=== PATIENT | female | born 1965 | race American Indian/Alaskan Native ===

== ENCOUNTER 2017-07-26 09:59 | Inpatient (IN) | payer MEDICARE ==
[~2017-07-26 09:59] MED LIST: LACTATED RINGERS 1,000 ML IV SCH; VERSED IV NR
[2017-07-26] MEDS ORDERED: NACL 0.9% 1000 ML 1,000 ML ONE (12:07)
[2017-07-26 12:22] LABS: Basophils # (Auto) 0.1 K/mm3 (0.0-0.1); Basophils % (Auto) 1.1 % (0.0-1.8); Eosinophils # (Auto) 0.6 K/mm3 (0.0-0.4); Hematocrit 31.4 % (30.3-42.9); Hemoglobin 10.1 gm/dl (10.1-14.3); Lymphocytes # (Auto) 1.4 K/mm3 (1.2-5.4); Lymphocytes % (Auto) 17.3 % (13.4-35.0); Mean Corpuscular HGB Conc 32 % (30-34); Mean Corpuscular Hemoglobin 28 pg (28-32); Mean Corpuscular Volume 86 fl (79-97); Monocytes # (Auto) 0.7 K/mm3 (0.0-0.8); Monocytes % (Auto) 8.3 % (0.0-7.3); Platelet Count 270 K/mm3 (140-440); Red Blood Count 3.67 M/mm3 (3.65-5.03)
--- NOTE | 2017-07-26 12:28 | Anesthesia Consultation ---
Anesthesia Consult and Med Hx Date of service: 07/26/17 - Airway Anesthetic Teeth Evaluation: Good ROM Head & Neck: Adequate Mental/Hyoid Distance: Adequate Mallampati Class: Class II Intubation Access Assessment: Good - Pulmonary Exam CTA: Yes - Cardiac Exam Cardiac Exam: RRR - Pre-Operative Health Status ASA Pre-Surgery Classification: ASA3 Proposed Anesthetic Plan: General - Cardiovascular System Hx Hypertension: Yes - Endocrine Hx Renal Disease: Yes Hx End Stage Renal Disease: Yes Hx Non-Insulin Dependent Diabetes: Yes - Other Systems Hx Obesity: Yes
--- NOTE | 2017-07-26 12:28 | Anesthesia Day of Surgery ---
Anesthesia Day of Surgery - Day of Surgery Patient Examined: Yes Patient H&P Reviewed: Yes Patient is NPO: Yes
[2017-07-26 12:33] LABS: INR 1.02 (0.87-1.13)
[2017-07-26 12:34] LABS: Partial Thromboplastin Time 20.2 Sec. (24.2-36.6)
[2017-07-26] MEDS ORDERED: HumuLIN R IV ONE (12:35)
[2017-07-26 12:42] LABS: Calcium 8.5 mg/dL (8.4-10.2)
[2017-07-26] MEDS ORDERED: PEPCID PO NR (13:00)
[2017-07-26] MEDS ORDERED: ANCEF/STERILE WATER 2 GM/20 ML IV NR (13:21)
[2017-07-26] MEDS ORDERED: DIPRIVAN 10 MG/ML IV ONE ×2 (14:48→14:55)
[2017-07-26] MEDS ORDERED: XYLOCAINE MPF 2% ONE ×2 (14:49→14:55)
[2017-07-26] MEDS ORDERED: DILAUDID ONE ×2 (14:51→18:20)
[2017-07-26] MEDS ORDERED: HEPARIN ONE (15:23)
[2017-07-26] MEDS ORDERED: NACL 0.9% IR ONE (16:05)
[2017-07-26] MEDS ORDERED: QUELICIN ONE (16:09)
[2017-07-26] MEDS ORDERED: ZEMURON IV ONE (16:09)
[2017-07-26] MEDS ORDERED: DECADRON ONE (16:15)
[2017-07-26] MEDS ORDERED: NEO SYNEPHRINE/NS Syringe(OR USE) IV ONE (16:30)
[2017-07-26] MEDS ORDERED: NEO SYNEPHRINE ONE (16:30)
[2017-07-26] MEDS ORDERED: ROBINUL ONE ×2 (16:45)
[2017-07-26] MEDS ORDERED: ZOFRAN ONE ×2 (16:45→18:43)
[2017-07-26] MEDS ORDERED: NEOSTIGMINE ONE (16:45)
[2017-07-26] MEDS ORDERED: APRESOLINE ONE (16:49)
[2017-07-26] MEDS ORDERED: NORMODYNE IV ONE (16:53)
[2017-07-26] MEDS ORDERED: ePHEDrine SULFATE ONE (17:07)
[2017-07-26] MEDS ORDERED: ZOFRAN IV PRN (18:27)
[2017-07-26] MEDS ORDERED: DILAUDID IV PRN ×2 (18:27→23:06)
[2017-07-26] MEDS ORDERED: VANCOMYCIN/NS 1 GM/250 ML 1 GM/250 ML BAG IV SCH (19:00)
[2017-07-26] MEDS ORDERED: VANCOMYCIN PHARMACY TO DOSE IV SCH ×2 (19:00)
[2017-07-26 19:12] LABS: Hematocrit 30.8 % (30.3-42.9); Hemoglobin 9.8 gm/dl (10.1-14.3)
--- NOTE | 2017-07-26 19:42 | History and Physical Report ---
History of Present Illness Date of admission: 07/26/17 17:51 Chief complaint: Missed dialysis History of present illness: 51 YO Female with MO, DM, HTN, ESRD on HD (M,W,F), Last dialyzed on Wednesday presents to [facility] for elective surgical procedure and was admitted postoperatively for dialysis. Pt seen and evaluated upon arrival to the floor. Pt daughter at bedside during exam and interview. Pt resting comfortably. No reports of fever, chills, CP, Palpitations, NVD, Weakness, Productive cough or recent ill contacts. No reported nursing events. Discussed care plan with Nursing staff, and Nephrology consulted for dilaysis. Nursing staff informed to notify nephrology team for dialysis orders. Past History Past Medical History: diabetes, ESRD, hypertension Past Surgical History: Other (AV Fistula) Social history: denies: single Family history: hypertension Medications and Allergies Allergies Allergy/AdvReac Type Severity Reaction Status Date / Time codeine AdvReac Intermediate Vomiting Verified 07/26/17 11:16 morphine AdvReac Intermediate Vomiting Verified 07/26/17 11:17 Sulfa (Sulfonamide AdvReac Intermediate Vomiting Verified 07/26/17 11:10 Antibiotics) tramadol AdvReac Intermediate Vomiting Verified 07/26/17 11:19 Home Medications Medication Instructions Recorded Confirmed Last Taken Type Amitriptyline [Elavil] 25 mg PO DAILY 07/26/17 07/26/17 07/24/17 History Calcium Acetate [Phoslo] 667 mg PO 07/26/17 07/25/17 History Cetirizine HCl [Zyrtec] 10 mg PO DAILY 07/26/17 07/26/17 07/24/17 History Cinacalcet [Sensipar] 30 mg PO DAILY 07/26/17 07/26/17 07/24/17 History Enoxaparin [Lovenox] 30 mg SQ QDAY 07/26/17 07/26/17 07/24/17 History Gabapentin [Neurontin] 400 mg PO 07/26/17 07/24/17 History Insulin Aspart [NovoLOG 100 100 units PRN 07/26/17 07/26/17 07/25/17 History UNITS/ML VIAL] Insulin Glargine,Hum.rec.anlog 20 units DAILY 07/26/17 07/26/17 07/24/17 History [Lantus Solostar] Pantoprazole [Protonix] 40 mg PO QDAY 07/26/17 07/26/17 07/25/17 History Polyethylene Glycol 3350 [Miralax 17 gm PO QDAY 07/26/17 07/26/17 07/22/17 History 3350] Rosuvastatin Calcium 07/26/17 Unknown History Rosuvastatin Calcium [Crestor] 20 mg PO DAILY 07/26/17 07/26/17 07/17/17 History Warfarin [Coumadin] 2.5 mg PO DAILY 07/26/17 07/26/17 07/21/17 History Active Meds: Active Medications Amitriptyline HCl (Elavil) 25 mg PO DAILY [facility] Atorvastatin Calcium (Lipitor) 40 mg PO QHS [facility] Cefazolin Sodium (Ancef/Sterile Water 2 Gm/20 Ml) 2 gm IV PREOP NR Stop: 07/26/17 23:59 Cinacalcet (Sensipar) 30 mg PO DAILY [facility] Enoxaparin Sodium (Lovenox) 30 mg SUB-Q QDAY [facility] Famotidine (Pepcid) 20 mg PO PREOP NR Stop: 07/26/17 23:59 Last Admin: 07/26/17 12:46 Dose: 20 mg Gabapentin (Neurontin) 400 mg PO DAILY [facility] Hydromorphone HCl (Dilaudid) 0.25 mg IV Q10MIN PRN PRN Reason: Pain, Moderate (4-6) Stop: 07/27/17 18:26 Last Admin: 07/26/17 18:20 Dose: 0.25 mg Lactated Ringer's (Lactated Ringers) 1,000 mls @ 100 mls/hr IV DIRECT [facility] Vancomycin HCl 2,000 mg/ (Sodium Chloride) 520 mls @ 250 mls/hr IV ONCE ONE Stop: 07/26/17 22:04 Midazolam HCl (Versed) 2 mg IV PREOP NR Stop: 07/26/17 23:59 Last Admin: 07/26/17 13:17 Dose: 2 mg Pantoprazole Sodium (Protonix) 40 mg PO QDAY [facility] Polyethylene Glycol (Miralax 3350) 17 gm PO QDAY [facility] Vancomycin HCl (Vancomycin Pharmacy To Dose) 1 each IV PKCONSULT [facility]; Protocol Warfarin Sodium (Coumadin) 7.5 mg PO DAILY@1700 [facility] Review of Systems Constitutional: no weight loss, no weight gain, no chills Ears, nose, mouth and throat: no ear discharge, no tinnitis, no decreased hearing (/), no nasal congestion, no nasal discharge Breasts: no change in shape, no swelling, no mass (//) Cardiovascular: no chest pain, no orthopnea, no palpitations, no rapid/ irregular heart beat, no syncope, no lightheadedness Respiratory: no cough, no cough with sputum, no excessive sputum, no hemoptysis , no shortness of breath Gastrointestinal: no abdominal pain, no nausea, no vomiting, no diarrhea, no constipation Genitourinary Female: no pelvic pain, no flank pain, no dysuria, no urinary frequency, no incomplete emptying Rectal: no pain, no incontinence, no bleeding Musculoskeletal: no neck stiffness, no neck pain, no shooting arm pain, no arm numbness/tingling, no low back pain Integumentary: no rash, no pruritis, no redness, no sores, no wounds, no blisters Neurological: no head injury, no transient paralysis, no paralysis, no weakness , no parathesias, no numbness Psychiatric: no anxiety, no memory loss, no change in sleep habits, no sleep disturbances, no insomnia, no hypersomnia, no change in appetite Endocrine: no cold intolerance, no heat intolerance, no polyphagia, no excessive thirst, no polydipsia, no polyuria, no nocturia Hematologic/Lymphatic: no easy bruising, no easy bleeding Allergic/Immunologic: no urticaria, no allergic rhinitis, no wheezing (//) Exam - Constitutional Vitals: Temp Pulse Resp BP Pulse Ox 97.5 F L 78 14 115/63 100 07/26/17 18:50 07/26/17 19:05 07/26/17 19:05 07/26/17 19:05 07/26/17 19:05 General appearance: Present: no acute distress, obese - EENT Eyes: Present: PERRL ENT: hearing intact, clear oral mucosa - Neck Neck: Present: supple, normal ROM - Respiratory Respiratory effort: normal Respiratory: bilateral: CTA - Cardiovascular Heart Sounds: Present: S1 & S2. Absent: rub, click - Extremities Extremities: pulses symmetrical, No edema Peripheral Pulses: within normal limits - Abdominal General gastrointestinal: Present: soft, non-tender, non-distended, normal bowel sounds Female genitourinary: Present: normal - Integumentary Integumentary: Present: clear, warm, dry - Musculoskeletal Musculoskeletal: gait normal, strength equal bilaterally - Psychiatric Psychiatric: appropriate mood/affect, intact judgment & insight - Neurologic Neurologic: CNII-XII intact, moves all extremities Results - Labs CBC & Chem 7: 07/26/17 19:03 07/26/17 11:40 Labs: Abnormal lab results 07/26/17 07/26/17 07/26/17 Range/Units 11:40 11:40 11:40 Hgb (10.1-14.3) gm/dl RDW 18.0 H (13.2-15.2) % [place] % (Auto) 8.3 H (0.0-7.3) % Eos % (Auto) 7.0 H (0.0-4.3) % Eos # 0.6 H (0.0-0.4) K/mm3 APTT 20.2 L (24.2-36.6) Sec. Sodium 135 L (137-145) mmol/L Chloride 92.3 L (98-107) mmol/L BUN 29 H (7-17) mg/dL Creatinine 8.4 H (0.7-1.2) mg/dL Glucose 224 H (65-100) mg/dL POC Glucose (70-105) 07/26/17 07/26/17 07/26/17 Range/Units 12:00 14:23 18:08 Hgb (10.1-14.3) gm/dl RDW (13.2-15.2) % [place] % (Auto) (0.0-7.3) % Eos % (Auto) (0.0-4.3) % Eos # (0.0-0.4) K/mm3 APTT (24.2-36.6) Sec. Sodium (137-145) mmol/L Chloride (98-107) mmol/L BUN (7-17) mg/dL Creatinine (0.7-1.2) mg/dL Glucose (65-100) mg/dL POC Glucose 228 H 173 H 254 H (70-105) 07/26/17 07/26/17 Range/Units 19:03 19:44 Hgb 9.8 L (10.1-14.3) gm/dl RDW (13.2-15.2) % [place] % (Auto) (0.0-7.3) % Eos % (Auto) (0.0-4.3) % Eos # (0.0-0.4) K/mm3 APTT (24.2-36.6) Sec. Sodium (137-145) mmol/L Chloride (98-107) mmol/L BUN (7-17) mg/dL Creatinine (0.7-1.2) mg/dL Glucose (65-100) mg/dL POC Glucose 322 H (70-105) Assessment and Plan - Patient Problems (1) ESRD (end stage renal disease) Current Visit: Yes Status: Acute Plan to address problem: Nephrology consulted upon arrival, Pending dialysis orders, CBC, CMP, EKG, strict I/O, monitor uop q shift, supplemental oxygen (2) HTN (hypertension) Current Visit: Yes Status: Acute Qualifiers: Hypertension type: essential hypertension Qualified Code(s): I10 - Essential (primary) hypertension Plan to address problem: Monitor bp q shift, resume prehospital antihypertensive therapy (3) Obesity hypoventilation syndrome Current Visit: Yes Status: Acute Plan to address problem: supplemental oxygen, nebulizer therapy, early ambulation, diuresis, dialysis, NIPPV as clinically indicated (4) Diabetes Current Visit: Yes Status: Acute Plan to address problem: Consistent carbohydrate diet as tolerated, insulin, accu check (5) DVT prophylaxis Current Visit: Yes Status: Acute Plan to address problem: SCD to ble while in bed
[2017-07-26] MEDS ORDERED: HumuLIN R SUB-Q ONE (19:43)
[2017-07-26] MEDS ORDERED: HumuLIN R ONE (19:47)
--- NOTE | 2017-07-26 19:51 | Operative Report ---
PREOPERATIVE DIAGNOSIS: Macromastia. POSTOPERATIVE DIAGNOSIS: Macromastia. PROCEDURE: Bilateral reduction mammoplasty with nipple areolar complex amputation. SURGEON: Genaro Petersen MD AUTOMOTIVE SALES SPECIALIST: Darin Rosales CSA FINDINGS: 1680 g removed from the right breast, 1640 g removed from the left breast. DESCRIPTION OF PROCEDURE: The patient was brought to the operating room and placed on the table in supine position. Following administration of general anesthesia, bilateral breasts were prepped with Betadine solution and draped in usual sterile manner. A #10 blade scalpel was used to make a circumareolar skin incision followed by de-epithelization of inferior dermal pedicle. Modified Lynne pattern skin markings were incised with scalpel, deepened through subcutaneous fat and breast tissue using the electrocautery. Skin flaps were raised in standard manner as was fashioning of an inferior central mound pedicle. Breast tissue was resected inclusive of nipple areolar complexes bilaterally using electrocautery. Hemostasis controlled using electrocautery and then closure performed over 10 mm BEATRIZ drains using interrupted and running subcuticular 2-0 Monocryl sutures. Mastisol, Steri-Strips, and sterile dressings applied. The patient tolerated procedure well and returned to recovery room in stable condition. JOB# [id number] FTW/NTS
[2017-07-26] MEDS ORDERED: VANCOMYCIN 2,000 MG in NACL 0.9% 500 ML 500 ML IV ONE (20:00)
[2017-07-26] MEDS ORDERED: COUMADIN PO SCH (20:00)
--- NOTE | 2017-07-26 20:36 | Post Anesthesia Evaluation ---
- Post Anesthesia Evaluation Patient Participated: Yes Airway Patent: Yes Stable Respiratory Function: Yes Nausea/Vomiting: No Temp > 96.8F: Yes Pain Manageable: Yes Adequeate Hydration: Yes Anesthesia Complications: No Block Receding Appropriately: No Patient on Ventilator: No
[2017-07-26] MEDS ORDERED: TYLENOL PO PRN (22:56)
[2017-07-27] MEDS ORDERED: D50W (25GM) Syringe IV PRN (05:45)
[2017-07-27] MEDS: HumaLOG SUB-Q SCH ×4 (06:32→23:23)
[2017-07-27] MEDS ORDERED: LANTUS SUB-Q SCH ×2 (08:00→22:00)
[2017-07-27 08:19] LABS: Hematocrit 28.4 % (30.3-42.9); Hemoglobin 8.9 gm/dl (10.1-14.3); Mean Corpuscular HGB Conc 31 % (30-34); Mean Corpuscular Hemoglobin 27 pg (28-32); Mean Corpuscular Volume 86 fl (79-97); Platelet Count 277 K/mm3 (140-440); Red Cell Distribution Width 17.5 % (13.2-15.2)
[2017-07-27] MEDS ORDERED: NACL 0.9% 100 ML IV PRN (08:22)
--- NOTE | 2017-07-27 08:22 | Consultation ---
History of Present Illness - Reason for Consult Consult date: 07/27/17 end stage renal disease - History of Present Illness The patient is a 51 YO AAF with medical history significant for Morbid Obesity, Type 2 DM, Hypotension and ESRD on HD (M,W,F), who underwent elective bilateral breast reduction and was admitted postoperatively for dialysis. Patient has been on hemodialysis for the past 8 yrs, never had a working AVF / AVG, followed by at [place], [place]. Patient was last dialyzed on wednesday the 23 of July. She had vomiting last night. Denies fever, chills, CP, abd pain, weakness, cough, leg swelling or SOB. No reported nursing events. Plan to do hemodialysis today. Past History Past Medical History: diabetes, ESRD Past Surgical History: Other (AV Fistula) Social history: denies: single Family history: hypertension Medications and Allergies Allergies Allergy/AdvReac Type Severity Reaction Status Date / Time codeine AdvReac Intermediate Vomiting Verified 07/26/17 11:16 morphine AdvReac Intermediate Vomiting Verified 07/26/17 11:17 Sulfa (Sulfonamide AdvReac Intermediate Vomiting Verified 07/26/17 11:10 Antibiotics) tramadol AdvReac Intermediate Vomiting Verified 07/26/17 11:19 Home Medications Medication Instructions Recorded Confirmed Last Taken Type Amitriptyline [Elavil] 25 mg PO DAILY 07/26/17 07/26/17 07/24/17 History Calcium Acetate [Phoslo] 667 mg PO 07/26/17 07/25/17 History Cetirizine HCl [Zyrtec] 10 mg PO DAILY 07/26/17 07/26/17 07/24/17 History Cinacalcet [Sensipar] 30 mg PO DAILY 07/26/17 07/26/17 07/24/17 History Enoxaparin [Lovenox] 30 mg SQ QDAY 07/26/17 07/26/17 07/24/17 History Gabapentin [Neurontin] 400 mg PO 07/26/17 07/24/17 History Insulin Aspart [NovoLOG 100 100 units PRN 07/26/17 07/26/17 07/25/17 History UNITS/ML VIAL] Insulin Glargine,Hum.rec.anlog 20 units DAILY 07/26/17 07/26/17 07/24/17 History [Lantus Solostar] Pantoprazole [Protonix] 40 mg PO QDAY 07/26/17 07/26/17 07/25/17 History Polyethylene Glycol 3350 [Miralax 17 gm PO QDAY 07/26/17 07/26/17 07/22/17 History 3350] Rosuvastatin Calcium 07/26/17 Unknown History Rosuvastatin Calcium [Crestor] 20 mg PO DAILY 07/26/17 07/26/17 07/17/17 History Warfarin [Coumadin] 2.5 mg PO DAILY 07/26/17 07/26/17 07/21/17 History Active Meds: Active Medications Acetaminophen (Tylenol) 650 mg PO Q4H PRN PRN Reason: Non Cardiac Pain or Temp>100.5 Amitriptyline HCl (Elavil) 25 mg PO DAILY [facility] Atorvastatin Calcium (Lipitor) 40 mg PO QHS [facility] Last Admin: 07/26/17 22:35 Dose: 40 mg Cinacalcet (Sensipar) 30 mg PO DAILY [facility] Dextrose (D50w (25gm) Syringe) 50 ml IV PRN PRN PRN Reason: Hypoglycemia Enoxaparin Sodium (Lovenox) 30 mg SUB-Q QDAY [facility] Gabapentin (Neurontin) 400 mg PO DAILY [facility] Hydromorphone HCl (Dilaudid) 0.25 mg IV Q4H PRN PRN Reason: Pain , Severe (7-10) Last Admin: 07/27/17 06:00 Dose: 0.25 mg Insulin Glargine (Lantus) 20 units SUB-Q QHS [facility] Insulin Human Lispro (Humalog) 0 unit SUB-Q ACHS [facility]; Protocol Last Admin: 07/27/17 06:32 Dose: 10 unit Pantoprazole Sodium (Protonix) 40 mg PO QDAY [facility] Polyethylene Glycol (Miralax 3350) 17 gm PO QDAY [facility] Vancomycin HCl (Vancomycin Pharmacy To Dose) 1 each IV PKCONSULT [facility]; Protocol Warfarin Sodium (Coumadin) 2.5 mg PO DAILY@1700 [facility] Review of Systems Constitutional: no weight loss, no weight gain, no fever, no chills, no anorexia , no weakness Ears, nose, mouth and throat: no epistaxis Breasts: deferred Cardiovascular: no chest pain, no orthopnea, no edema, no syncope, no lightheadedness, no shortness of breath, no high blood pressure, no leg edema Respiratory: no cough, no hemoptysis, no shortness of breath Gastrointestinal: nausea, vomiting, no abdominal pain, no diarrhea, no melena, no jaundice Genitourinary Female: no dysuria, no hematuria Rectal: no bleeding Musculoskeletal: no redness of joints Integumentary: no rash, no jaundice Neurological: no head injury, no paralysis, no syncope, no convulsions, no change in speech, no change in mentation Exam - Vital Signs Vital signs: Vital Signs Temp Pulse Resp BP Pulse Ox 97.5 F L 88 18 102/63 99 07/26/17 10:55 07/26/17 10:55 07/26/17 10:55 07/26/17 10:55 07/26/17 10:55 - General Appearance General appearance: well-developed, well-nourished, appears stated age, obese, other (no distress, right IJ tunnel catheter) EENT: ATNC, PERRL, hearing intact, vision intact Neck: Present: neck supple, trachea midline Respiratory: Clear to Ascultation Heart: regular, S1S2, no murmurs Gastrointestinal: Present: normoactive bowel sounds, obese. Absent: tenderness Integumentary: no rash Neurologic: no focal deficit, no asterixis, alert and oriented x3 Musculoskeletal: Present: other (no edema) Psychiatric: mood/affect appropriate, cooperative Results - Lab Results 07/27/17 07:50 07/27/17 07:50 Most recent lab results Calcium 8.5 mg/dL (8.4-10.2) 07/26/17 11:40 Assessment and Plan 1. End stage renal disease: Hemodialysis today. Her regular schedule is MW. 2. Hyperkalemia: Hemodialysis today, orders placed and talked to the senior engineering specialist. 3. Hypotension: BP likely at her baseline. Monitor. 4. Anemia: Epogen with hemodialysis.
[2017-07-27 08:27] LABS: INR 1.15 (0.87-1.13)
[2017-07-27] MEDS ORDERED: PROCRIT SUB-Q SCH (09:00)
[2017-07-27 09:31] LABS: Anisocytosis 1+; Basophils % (Manual) 0 % (0.0-1.8); Eosinophils % (Manual) 0 % (0.0-4.3); Ovalocytes 1+; Total Cells Counted 100
[2017-07-27] MEDS: ELAVIL PO SCH (09:40)
[2017-07-27] MEDS: NEURONTIN PO SCH (09:41)
[2017-07-27] MEDS: SENSIPAR PO SCH (09:41)
[2017-07-27] MEDS: PROTONIX PO SCH (09:42)
[2017-07-27] MEDS ORDERED: NON-FORMULARY (Rosuvastatin Calcium [Crestor] 20 MG) PO SCH (10:00)
[2017-07-27] MEDS ORDERED: LOVENOX SUB-Q SCH (10:00)
[2017-07-27] MEDS: MIRALAX 3350 PO SCH (10:00)
[2017-07-27] MEDS ORDERED: COUMADIN PO SCH (10:00)
[2017-07-27] MEDS ORDERED: HEPARIN 10,000 UNITS/10 ML ONE (10:23)
[2017-07-27] MEDS ORDERED: HEPARIN IV ONE (10:29)
[2017-07-27] MEDS ORDERED: HEPARIN 10,000 UNITS/10 ML IV PRN (10:30)
[2017-07-27] MEDS ORDERED: NACL 0.9 (PRIMING MACHINE ONLY DIALYSIS) MC ONE (13:17)
[2017-07-27] MEDS ORDERED: HEPARIN ONE (13:18)
--- NOTE | 2017-07-27 15:57 | Progress Note ---
Assessment and Plan Assessment and plan: Patient is a 51 yo woman with a history of type 2 dm, hypertension and ESRD on hemodialysis on HD (mwf) who presented as a Direct admission from PACU after bilateral breast reduction by Dr. Petersen. Patient admitted for hemodialysis. Patient tells me that hemodialysis was unsuccessful on Wednesday, prior to surgery because she needed heparin to access hemodialysis site but no heparin was allowed due to surgery. Patient also has a history of PE and leg DVT s/p IVC filter on anticoagulation x 5-6 years, diagnosis in [place], [place]. Anticoagulation is managed by Dr. Leyla Alexandre [phone]. -ESRD needing hemodialysis due to hyperkalemia: d/w Dr. 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 I called Dr. Mayer's office, no answer History Interval history: Patient was seen and examined. Follow-up on current diagnosis. Overnight uneventful. Patient denies any chest pain, shortness breath, nausea/vomiting or severe headaches. Imaging, nursing note, chart, labs and old chart reviewed. Discussed with patient. Hospitalist Physical - Physical exam Narrative exam: GEN: WDWN, NAD, Awake, Alert, Orientated HEENT: NCAT, EOMI, PERRL, OP Clear NECK: supple, no adenopathy, no thyromegaly, no JVD CVS/HEART: RRR, normal S1S2, pulses present bilaterally CHEST/LUNGS: CTA B, Symmetrical chest expansion, good air entry bilaterally GI/Abdomen: soft, NTND, good bowel sounds, no guarding or rebound /Bladder: no suprapubic tenderness, no CVA or paraspinal tenderness EXT/Skin: no c/c/e, no obvious rash MSK: FROM x 4 Neuro: CN 2-12 grossly intact, no new focal deficits Psych: calm - Constitutional Vitals: Temp Pulse Resp BP Pulse Ox 97.8 F 98 H 20 93/39 97 07/27/17 13:50 07/27/17 13:50 07/27/17 13:50 07/27/17 13:50 07/27/17 13:50 General appearance: Present: no acute distress, obese Results - Labs CBC & Chem 7: 07/27/17 07:50 07/27/17 07:50 Labs: Laboratory Last Values WBC 15.5 K/mm3 (4.5-11.0) H 07/27/17 07:50 RBC 3.30 M/mm3 (3.65-5.03) L 07/27/17 07:50 Hgb 8.9 gm/dl (10.1-14.3) L 07/27/17 07:50 Hct 28.4 % (30.3-42.9) L 07/27/17 07:50 MCV 86 fl (79-97) 07/27/17 07:50 MCH 27 pg (28-32) L 07/27/17 07:50 MCHC 31 % (30-34) 07/27/17 07:50 RDW 17.5 % (13.2-15.2) H 07/27/17 07:50 Plt Count 277 K/mm3 (140-440) 07/27/17 07:50 Lymph % (Auto) 17.3 % (13.4-35.0) 07/26/17 11:40 [place] % (Auto) 8.3 % (0.0-7.3) H 07/26/17 11:40 Eos % (Auto) 7.0 % (0.0-4.3) H 07/26/17 11:40 Baso % (Auto) 1.1 % (0.0-1.8) 07/26/17 11:40 Lymph # 1.4 K/mm3 (1.2-5.4) 07/26/17 11:40 [place] # 0.7 K/mm3 (0.0-0.8) 07/26/17 11:40 Eos # 0.6 K/mm3 (0.0-0.4) H 07/26/17 11:40 Baso # 0.1 K/mm3 (0.0-0.1) 07/26/17 11:40 Add Manual Diff Complete 07/27/17 07:50 Total Counted 100 07/27/17 07:50 Seg Neutrophils % Metal Tank Builder 07/27/17 07:50 Seg Neuts % (Manual) 94.0 % (40.0-70.0) H 07/27/17 07:50 Band Neutrophils % 0 % 07/27/17 07:50 Lymphocytes % (Manual) 2.0 % (13.4-35.0) L 07/27/17 07:50 Reactive Lymphs % (Man) 0 % 07/27/17 07:50 Monocytes % (Manual) 4.0 % (0.0-7.3) 07/27/17 07:50 Eosinophils % (Manual) 0 % (0.0-4.3) 07/27/17 07:50 Basophils % (Manual) 0 % (0.0-1.8) 07/27/17 07:50 Metamyelocytes % 0 % 07/27/17 07:50 Myelocytes % 0 % 07/27/17 07:50 Promyelocytes % 0 % 07/27/17 07:50 Blast Cells % 0 % 07/27/17 07:50 Nucleated RBC % Not Reportable 07/27/17 07:50 Seg Neutrophils # 5.4 K/mm3 (1.8-7.7) 07/26/17 11:40 Seg Neutrophils # Man 14.6 K/mm3 (1.8-7.7) H 07/27/17 07:50 Band Neutrophils # 0.0 K/mm3 07/27/17 07:50 Lymphocytes # (Manual) 0.3 K/mm3 (1.2-5.4) L 07/27/17 07:50 Abs React Lymphs (Man) 0.0 K/mm3 07/27/17 07:50 Monocytes # (Manual) 0.6 K/mm3 (0.0-0.8) 07/27/17 07:50 Eosinophils # (Manual) 0.0 K/mm3 (0.0-0.4) 07/27/17 07:50 Basophils # (Manual) 0.0 K/mm3 (0.0-0.1) 07/27/17 07:50 Metamyelocytes # 0.0 K/mm3 07/27/17 07:50 Myelocytes # 0.0 K/mm3 07/27/17 07:50 Promyelocytes # 0.0 K/mm3 07/27/17 07:50 Blast Cells # 0.0 K/mm3 07/27/17 07:50 WBC Morphology Not Reportable 07/27/17 07:50 Hypersegmented Neuts Not Reportable 07/27/17 07:50 Hyposegmented Neuts Not Reportable 07/27/17 07:50 Hypogranular Neuts Not Reportable 07/27/17 07:50 Smudge Cells Not Reportable 07/27/17 07:50 Toxic Granulation Not Reportable 07/27/17 07:50 Toxic Vacuolation Not Reportable 07/27/17 07:50 Dohle Bodies Not Reportable 07/27/17 07:50 Pelger-Huet Anomaly Not Reportable 07/27/17 07:50 Raymundo Rods Not Reportable 07/27/17 07:50 Platelet Estimate Appears normal 07/27/17 07:50 Clumped Platelets Not Reportable 07/27/17 07:50 Plt Clumps, EDTA Not Reportable 07/27/17 07:50 Large Platelets Not Reportable 07/27/17 07:50 Giant Platelets Not Reportable 07/27/17 07:50 Platelet Satelliting Not Reportable 07/27/17 07:50 Plt Morphology Comment Not Reportable 07/27/17 07:50 RBC Morphology Not Reportable 07/27/17 07:50 Dimorphic RBCs Not Reportable 07/27/17 07:50 Polychromasia Not Reportable 07/27/17 07:50 Hypochromasia Not Reportable 07/27/17 07:50 Poikilocytosis Not Reportable 07/27/17 07:50 Anisocytosis 1+ 07/27/17 07:50 Microcytosis Not Reportable 07/27/17 07:50 Macrocytosis Not Reportable 07/27/17 07:50 Spherocytes Not Reportable 07/27/17 07:50 Pappenheimer Bodies Not Reportable 07/27/17 07:50 Sickle Cells Not Reportable 07/27/17 07:50 Target Cells Not Reportable 07/27/17 07:50 Tear Drop Cells Not Reportable 07/27/17 07:50 Ovalocytes 1+ 07/27/17 07:50 Helmet Cells Not Reportable 07/27/17 07:50 Shannon-Rudy Bodies Not Reportable 07/27/17 07:50 [place] Rings Not Reportable 07/27/17 07:50 [place] Cells Not Reportable 07/27/17 07:50 Bite Cells Not Reportable 07/27/17 07:50 Crenated Cell Not Reportable 07/27/17 07:50 Elliptocytes Not Reportable 07/27/17 07:50 Acanthocytes (Spur) Not Reportable 07/27/17 07:50 Rouleaux Not Reportable 07/27/17 07:50 Hemoglobin C Crystals Not Reportable 07/27/17 07:50 Schistocytes Not Reportable 07/27/17 07:50 Malaria parasites Not Reportable 07/27/17 07:50 Jovon Bodies Not Reportable 07/27/17 07:50 Hem Pathologist Commnt No 07/27/17 07:50 PT 15.3 Sec. (12.2-14.9) H 07/27/17 07:50 INR 1.15 (0.87-1.13) H 07/27/17 07:50 APTT 20.2 Sec. (24.2-36.6) L 07/26/17 11:40 Sodium 132 mmol/L (137-145) L 07/27/17 07:50 Potassium 6.6 mmol/L (3.6-5.0) H* D 07/27/17 07:50 Chloride 91.6 mmol/L (98-107) L 07/27/17 07:50 Carbon Dioxide 25 mmol/L (22-30) 07/27/17 07:50 Anion Gap 22 mmol/L 07/27/17 07:50 BUN 41 mg/dL (7-17) H 07/27/17 07:50 Creatinine 9.3 mg/dL (0.7-1.2) H 07/27/17 07:50 Estimated GFR 5 ml/min 07/27/17 07:50 BUN/Creatinine Ratio 4 % 07/27/17 07:50 Glucose 497 mg/dL (65-100) H 07/27/17 07:50 POC Glucose 431 (70-105) H 07/27/17 05:33 Calcium 8.0 mg/dL (8.4-10.2) L 07/27/17 07:50 HCG, Qual Negative (Negative) 07/26/17 11:40
[2017-07-27] MEDS: COUMADIN PO SCH (17:58)
[2017-07-27] MEDS ORDERED: NACL 0.9% 500 ML 500 ML IV ONE (20:46)
[2017-07-27] MEDS: HEPARIN SUB-Q SCH (23:24)
[2017-07-28 07:38] LABS: Calcium 7.7 mg/dL (8.4-10.2)
[2017-07-28 07:51] LABS: Basophils % (Auto) 0.4 % (0.0-1.8); Eosinophils # (Auto) 0.2 K/mm3 (0.0-0.4); Eosinophils % (Auto) 2.1 % (0.0-4.3); Hematocrit 26.7 % (30.3-42.9); Hemoglobin 8.6 gm/dl (10.1-14.3); Lymphocytes # (Auto) 1.1 K/mm3 (1.2-5.4); Lymphocytes % (Auto) 10.2 % (13.4-35.0); Mean Corpuscular HGB Conc 32 % (30-34); Mean Corpuscular Hemoglobin 27 pg (28-32); Mean Corpuscular Volume 85 fl (79-97); Monocytes # (Auto) 0.8 K/mm3 (0.0-0.8); Monocytes % (Auto) 7.4 % (0.0-7.3); Platelet Count 234 K/mm3 (140-440); Red Blood Count 3.14 M/mm3 (3.65-5.03); Red Cell Distribution Width 17.7 % (13.2-15.2)
[2017-07-28 07:58] LABS: INR 1.39 (0.87-1.13)
--- NOTE | 2017-07-28 09:00 | Progress Note ---
Assessment and Plan 1. End stage renal disease: Resume her regular HD schedule. Hemodialysis today. 2. Hyperkalemia: Improved after hemodialysis yesterday. 3. Hypotension: BP at her baseline. Monitor. 4. Anemia: Epogen with hemodialysis. A dose of Ferrlecit today. Subjective Date of service: 07/28/17 Interval history: Patient is feeling better. Objective - Vital Signs Vital signs: Vital Signs - 12hr 07/27/17 07/28/17 07/28/17 23:22 04:26 07:47 Temperature 98.3 F 98.6 F 98.3 F Pulse Rate 102 H 90 95 H Respiratory 18 24 20 Rate Blood Pressure 82/43 102/50 97/52 O2 Sat by Pulse 94 96 94 Oximetry - General Appearance General appearance: well-developed, well-nourished, appears stated age, obese, other (no distress, right IJ tunnel catheter, drain from the chest noted) EENT: ATNC, PERRL, hearing intact, vision intact Neck: supple Respiratory: Present: Clear to Ascultation Cardiology: regular, S1S2, no murmurs Gastrointestinal: normoactive bowel sounds, no tenderness, obese Integumentary: no rash Neurologic: no focal deficit, no asterixis, alert and oriented x3 Musculoskeletal: other (no edema) Psychiatric: mood/affect appropriate, cooperative - Lab 07/28/17 06:37 07/28/17 06:37 Most recent lab results Calcium 7.7 mg/dL (8.4-10.2) L 07/28/17 06:37
[2017-07-28] MEDS: HumaLOG SUB-Q SCH ×3 (09:06→17:13)
[2017-07-28] MEDS ORDERED: NACL 0.9% 100 ML IV PRN ×2 (09:30→14:02)
[2017-07-28] MEDS ORDERED: FERRLECIT 125 MG in NACL 0.9% 100 ML IV ONE (11:00)
--- NOTE | 2017-07-28 13:14 | Discharge Summary ---
Providers - Providers Date of Admission: 07/27/17 08:46 Date of discharge: 07/28/17 Attending physician: RASTA CUMMINGS 07/26/17 19:43 Consult to Physician [CONS] Routine Comment: Consulting Provider: JANA SORTO Physician Instructions: Reason For Exam: esrd on hd 07/27/17 05:45 Consult to Dietitian/Nutrition [CONS] Routine Physician Instructions: Reason For Exam: Reason for Consult: Diet education Primary care physician: [employer] Hospitalization Condition: Stable Hospital course: Patient is a 51 yo woman with a history of type 2 dm, hypertension and ESRD on hemodialysis on HD (mwf) who presented as a Direct admission from PACU after bilateral breast reduction by Dr. Petersen. Patient admitted for hemodialysis. Patient tells me that hemodialysis was unsuccessful on Wednesday, prior to surgery because she needed heparin to access hemodialysis site but no heparin was allowed due to surgery. Patient also has a history of PE and leg DVT s/p IVC filter on anticoagulation x 5-6 years, diagnosis in [place], [place]. Anticoagulation is managed by Dr. Leyla Alexandre [phone]. -ESRD needing hemodialysis due to hyperkalemia: d/w Dr. 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 I called Dr. Mayer's office, no answer. Held heparin drip because drop in hct Disposition: DC-01 TO HOME OR SELFCARE Time spent for discharge: 34 minutes Core Measure Documentation - Palliative Care Palliative Care/ Comfort Measures: Not Applicable - Core Measures Any of the following diagnoses?: none - VTE Discharge Requirements Deep Vein Thrombosis/Pulmonary Embolism Present on Admission: No Has pt received <5 days of overlap therapy or INR<2.0: No (I really don't know if she has chronic dvt/PE or not) Anticoagulant overlap therapy prescribed at discharge: No Contraindication No Overlap Therapy order at DC: Not Indicated Exam - Physical Exam Narrative exam: GEN: WDWN, NAD, Awake, Alert, Orientated HEENT: NCAT, EOMI, PERRL, OP Clear NECK: supple, no adenopathy, no thyromegaly, no JVD CVS/HEART: RRR, normal S1S2, pulses present bilaterally CHEST/LUNGS: CTA B, Symmetrical chest expansion, good air entry bilaterally GI/Abdomen: soft, NTND, good bowel sounds, no guarding or rebound /Bladder: no suprapubic tenderness, no CVA or paraspinal tenderness EXT/Skin: no c/c/e, no obvious rash MSK: FROM x 4 Neuro: CN 2-12 grossly intact, no new focal deficits Psych: calm - Constitutional Vitals: Temp Pulse Resp BP Pulse Ox 98.3 F 95 H 20 97/52 94 07/28/17 07:47 07/28/17 07:47 07/28/17 07:47 07/28/17 07:47 07/28/17 07:47 Plan Activity: other (no strenous activity until cleared by PCP) Diet: renal Follow up with: PRIMARY CAREMD [Primary Care Provider] - 7 Days Forms: Warfarin Discharge Instruction
[2017-07-28] MEDS ORDERED: NACL 0.9 (PRIMING MACHINE ONLY DIALYSIS) MC ONE (13:27)
[2017-07-28] MEDS: ELAVIL PO SCH ×2 (15:09→17:10)
[2017-07-28] MEDS: MIRALAX 3350 PO SCH (15:10)
[2017-07-28] MEDS: SENSIPAR PO SCH ×2 (15:10→17:10)
[2017-07-28] MEDS: PROTONIX PO SCH (15:10)
[2017-07-28] MEDS: NEURONTIN PO SCH ×2 (15:10→17:10)
[2017-07-28] MEDS: HEPARIN SUB-Q SCH (15:10)
[2017-07-28 16:12] VITALS: BP 124/68
[2017-07-28 16:54] LABS: Hepatitis A Antibody IgM Non-Reactive (NonReactive); Hepatitis B Core IgM Non-Reactive (NonReactive); Hepatitis B Surface Antigen Non-Reactive (Negative); Hepatitis C Virus Antibody Non-Reactive (NonReactive)
[2017-07-28] MEDS: PHOSLO PO SCH ×2 (17:08→17:11)
[2017-07-28] MEDS: COUMADIN PO SCH (17:10)
[2017-07-28] MEDS ORDERED: HEPARIN SUB-Q SCH (22:00)
== END 2017-07-28 18:53 | disposition home or self-care (01) | DRG 584 ==
LOC: OR 09:59 → 3A 17:51 → OBSVTOIN 07-27 08:46
PROVIDERS: ADMIT Internal Medicine; ATTEND Internal Medicine
PROC: 0HQXXZZ Repair Left Nipple, External Approach (ICD-10-PCS; principal; 2017-07-26)
PROC: 0HQWXZZ Repair Right Nipple, External Approach (ICD-10-PCS; 2017-07-26)
PROC: 0HBV3ZZ Excision of Bilateral Breast, Percutaneous Approach (ICD-10-PCS; 2017-07-26)
PROC: 5A1D70Z Performance of Urinary Filtration, Intermittent, Less than 6 Hours Per Day (ICD-10-PCS; 2017-07-27)
PROC: 5A1D70Z Performance of Urinary Filtration, Intermittent, Less than 6 Hours Per Day (ICD-10-PCS; 2017-07-28)
DX: N62 Hypertrophy of breast (principal); N18.6 End stage renal disease; I12.0 Hypertensive chronic kidney disease with stage 5 chronic kidney disease or end stage renal disease; E66.2 Morbid (severe) obesity with alveolar hypoventilation; Z68.43 Body mass index [BMI] 50.0-59.9, adult; E11.22 Type 2 diabetes mellitus with diabetic chronic kidney disease; E87.5 Hyperkalemia; E11.65 Type 2 diabetes mellitus with hyperglycemia; Z71.3 Dietary counseling and surveillance; Z86.711 Personal history of pulmonary embolism; Z86.718 Personal history of other venous thrombosis and embolism; Z79.01 Long term (current) use of anticoagulants; Z82.49 Family history of ischemic heart disease and other diseases of the circulatory system; Z88.5 Allergy status to narcotic agent; Z88.2 Allergy status to sulfonamides; D63.1 Anemia in chronic kidney disease
CPT/HCPCS: 36415; 80048; 80074; 82962; 84703; 85007; 85014; 85018; 85025; 85610; 85730; 88305; 93005; 93010; A9270-GY; G0378; J0330; J0360; J0690; J0885; J1100; J1170; J1644; J1650; J1815; J2250; J2370; J2405; J2704; J2710; J2916; J3370; J7030; J7040; J7120